=== PATIENT | male | born 1995 | race Caucasian/White ===

== ENCOUNTER 2020-08-26 06:23 | Emergency (ER) | payer OTHER ==
[~2020-08-26] VITALS: Ht 175.3 cm; Wt 72.7 kg
[2020-08-26] MEDS ORDERED: ondansetron 4mg rapidly disintigrating tab PO ONE (07:05)
[2020-08-26] MEDS ORDERED: ONDA8TAB13 PO (07:10)
[2020-08-26 07:29] VITALS: BP 122/85
== END 2020-08-26 07:30 | disposition home or self-care (01) ==
LOC: ER 06:24
DX: R11.2 Nausea with vomiting, unspecified (principal); F12.90 Cannabis use, unspecified, uncomplicated; Z88.8 Allergy status to other drugs, medicaments and biological substances; Z79.899 Other long term (current) drug therapy
CPT/HCPCS: 99283

== ENCOUNTER 2021-08-27 20:59 | Emergency (ER) | payer SELFPAY ==
[~2021-08-27] VITALS: Ht 175.3 cm; Wt 90.9 kg
[~2021-08-27 20:59] MED LIST: ONDA8TAB13 PO
[2021-08-27] MEDS ORDERED: pantoprazole 40mg Tablet.DR PO ONE (21:15)
[2021-08-27] MEDS ORDERED: LIDOcaine Viscous 15ml cup MM ONE (21:15)
[2021-08-27] MEDS ORDERED: ondansetron 4mg rapidly disintigrating tab PO ONE (21:15)
[2021-08-27] MEDS ORDERED: mag hydrox/Alum hydrox/simeth 30ml oral suspension PO ONE (21:15)
[2021-08-27 21:23] LABS: BASOPHILS # (AUTO) 0.1 X10'3 (0-0.2); BASOPHILS % (AUTO) 0.5 % (0-1); EOSINOPHILS # (AUTO) 0.1 X10'3 (0-0.9); EOSINOPHILS % (AUTO) 0.9 % (0-6); HEMATOCRIT 42.6 % (42.0-52.0); HEMOGLOBIN 14.9 g/dl (14.0-17.9); LYMPHOCYTES # (AUTO) 2.3 X10'3 (1.1-4.8); LYMPHOCYTES % (AUTO) 19.5 % (21-51); MEAN CORPUSCULAR HEMOGLOBIN 30.1 PG (27.0-31.0); MEAN CORPUSCULAR HGB CONC 34.9 g/dL (33.0-36.5); MEAN CORPUSCULAR VOLUME 86.3 FL (78-98); MEAN PLATELET VOLUME 8.8 FL (7.4-10.4); MONOCYTES # (AUTO) 0.6 X10'3 (0-0.9); MONOCYTES % (AUTO) 5.4 % (2-12); NEUTROPHILS # (AUTO) 8.5 X10'3 (1.8-7.7); NEUTROPHILS % (AUTO) 73.7 % (42-75); PLATELET COUNT 236 X10'3 (140-440); RED BLOOD COUNT 4.94 X10'6 (4.70-6.10); RED CELL DISTRIBUTION WIDTH 12.7 % (11.5-14.5); WHITE BLOOD COUNT 11.5 X10'3 (4.5-11.0)
[2021-08-27 21:34] LABS: ALANINE AMINOTRANSFERASE 81 U/L (12-78); ALBUMIN 4.5 G/DL (3.4-5.0); ALBUMIN/GLOBULIN RATIO 1.3 (1.1-1.5); ALKALINE PHOSPHATASE 83 IU/L (46-116); ANION GAP 13 (8-16); ASPARTATE AMINO TRANSFERASE 34 U/L (10-37); BILIRUBIN,TOTAL 1.5 MG/DL (0.1-1.0); BLOOD UREA NITROGEN 12 MG/DL (7-18); BUN/CREATININE RATIO 11.4 (5.4-32.0); CALCIUM 9.2 MG/DL (8.5-10.1); CHLORIDE 102 MMOL/L (99-107); CREATININE 1.05 MG/DL (0.60-1.10); GLUCOSE 135 MG/DL (70-104); POTASSIUM 3.6 MMOL/L (3.5-5.1); SODIUM 141 MMOL/L (135-145); TOTAL PROTEIN 7.9 G/DL (6.4-8.2); eGFR 87 ML/MIN
[2021-08-27] MEDS ORDERED: acetaminophen 325mg tablet PO ONE (22:45)
[2021-08-27] MEDS ORDERED: ONDA4TAB6 PO (22:56)
[2021-08-27] MEDS ORDERED: PANT20TA18 PO (22:56)
[2021-08-27 22:59] VITALS: BP 139/90
== END 2021-08-27 23:03 | disposition home or self-care (01) ==
LOC: ER 20:59
DX: R11.2 Nausea with vomiting, unspecified (principal); R10.13 Epigastric pain; F12.90 Cannabis use, unspecified, uncomplicated; Z88.8 Allergy status to other drugs, medicaments and biological substances; Z79.899 Other long term (current) drug therapy
CPT/HCPCS: 36415; 76700; 80053; 85025; 99284

== ENCOUNTER 2023-05-07 05:46 | Emergency (ER) | payer BC ==
[~2023-05-07] VITALS: Ht 175.3 cm; Wt 93.2 kg
[~2023-05-07 05:46] MED LIST changes: +ONDA4TAB6 PO; +PANT20TA18 PO
[2023-05-07 05:50] VITALS: BP 128/77; PULSE 73; RESP 16; TEMP 98.4; O2SAT 98
[2023-05-07] MEDS ORDERED: ONDA4TAB12 PO ×3 (09:59→10:00)
[2023-05-07] MEDS ORDERED: PROC-8 PO ×3 (09:59→10:00)
== END 2023-05-07 10:20 | disposition home or self-care (01) ==
LOC: ER 05:47
DX: K52.89 Other specified noninfective gastroenteritis and colitis (principal); Z20.822 Contact with and (suspected) exposure to COVID-19; F12.10 Cannabis abuse, uncomplicated; Z88.8 Allergy status to other drugs, medicaments and biological substances; Z79.899 Other long term (current) drug therapy
CPT/HCPCS: 36415; 87502; 87503; 87811; 99283